=== PATIENT | female | born 1960 | race Two or more races ===

== ENCOUNTER 2017-03-09 20:59 | Emergency (ER) | payer MEDICAID ==
[~2017-03-09] VITALS: Ht 157.5 cm; Wt 54.0 kg
[2017-03-09 21:20] VITALS: BP 131/78
[2017-03-09] MEDS ORDERED: CYCLOBENZAPRINE10 MG ORAL (21:48)
[2017-03-09] MEDS ORDERED: IBUPROFEN400 MG ORAL (21:48)
[2017-03-09 21:54] VITALS: BP 131/78
--- NOTE | 2017-03-10 01:03 | Emergency Room Report ---
History of Present Illness General Chief Complaint: Lower Back Pain or Injury Source: Patient Present Illness HPI 56-year-old female presents ED complaining of back pain x2 days. Denies trauma. States that pain as throbbing, 6/10, nonradiating. Worse with twisting and bending. Denies any dysuria or hematuria. Denies bowel or bladder incontinence. Denies weakness. No aggravating relieving factors. Denies any other associated symptom Allergies: Coded Allergies: No Known Allergies (Unverified , 03/09/17) Patient History Past Medical History: none Past Surgical History: none Pertinent Family History: none Social History: Denies: alcohol use, drug use, smoking Now: No Immunizations: UTD Reviewed Nursing Documentation: PMH: Agreed, PSxH: Agreed Nursing Documentation-PMH Past Medical History: No Stated History Review of Systems All Other Systems: negative except mentioned in HPI Physical Exam Vital Signs Date Time Temp Pulse Resp B/P Pulse Ox O2 Delivery O2 Flow Rate FiO2 03/09/17 21:11 98.8 71 15 131/78 97 Room Air Sp02 EP Interpretation: reviewed, normal General Appearance: no apparent distress, alert, GCS 15, non-toxic Head: normocephalic Eyes: bilateral eye PERRL, bilateral eye normal inspection ENT: normal ENT inspection Neck: normal inspection Respiratory: normal inspection Cardiovascular #1: normal inspection Gastrointestinal: normal inspection Rectal: deferred Genitourinary: no CVA tenderness Musculoskeletal: tender - paraspinal lumbar tenderness Neurologic: alert, oriented x3, responsive, motor strength/tone normal, sensory intact, speech normal Psychiatric: normal inspection Skin: normal inspection Lymphatic: normal inspection Medical Decision Making Diagnostic Impression: Primary Impression: Low back pain Qualified Codes: M54.5 - Low back pain ER Course Hospital Course 56-year-old female presents ED complaining of lower back pain. No evidence of trauma Differential diagnoses include: pyelonephritis, kidney stone, muscle strain, Lspine fracture Clinical course Patient placed on stretcher. After initial history and physical I ordered Motrin for pain. Upon reassessment patient states pain has improved. Upon review of EMR, patient does not have any visits to ED requesting pain medications. Diagnosis - back pain Stable and discharged to home with prescription for Motrin, Flexeril. Followup with PMD. Return to ED if symptoms recur or worsen Last Vital Signs Date Time Temp Pulse Resp B/P Pulse Ox O2 Delivery O2 Flow Rate FiO2 03/09/17 21:54 98.8 77 15 131/78 97 Room Air Status: improved Disposition: HOME, SELF-CARE Condition: Stable Scripts Cyclobenzaprine Hcl* (FLEXERIL*) 10 Mg Tablet 10 MG ORAL TID Y for Muscle Spasm, #20 TAB Prov: FRANK POOL M.D. 03/09/17 Ibuprofen* (MOTRIN*) 400 Mg Tablet 400 MG ORAL Q8H, #30 TAB 0 Refills Prov: FRANK POOL M.D. 03/09/17 Referrals: NOT CHOSEN IPA/,REFERRING (PCP) Patient Instructions: Lumbosacral Strain FRANK POOL M.D. Mar 10, 2017 01:03
== END 2017-03-09 21:54 | disposition home or self-care (01) ==
LOC: EMR 21:27
DX: M54.5 Low back pain (principal)
CPT/HCPCS: 99284

== ENCOUNTER 2017-12-20 13:58 | Emergency (ER) | payer MEDICAID ==
[~2017-12-20] VITALS: Ht 157.5 cm; Wt 59.0 kg
[~2017-12-20 13:58] MED LIST: CYCLOBENZAPRINE10 MG ORAL; IBUPROFEN400 MG ORAL
[2017-12-20 14:06] VITALS: BP 106/69
--- NOTE | 2017-12-20 14:26 | Emergency Room Report ---
History of Present Illness General Chief Complaint: Syncope Source: Patient, Family Member Present Illness HPI 57-year-old female walks in with 5 days of intermittent headache, body aches, subjective fever , not measured at home, an episode of dizziness with almost passing out earlier today, which is why she came in it. No associated chest pain, shortness of breath, abdominal pain, nausea vomiting. Patient just took pain medication prior to arrival, currently asymptomatic. Denies other medical problems including diabetes, hypertension. No sick contacts at home. Allergies: Coded Allergies: No Known Allergies (Unverified , 03/09/17) Patient History Past Medical History: none Past Surgical History: none Pertinent Family History: none Social History: Denies: smoking, alcohol use, drug use Now: No Immunizations: UTD Reviewed Nursing Documentation: PMH: Agreed, PSxH: Agreed Nursing Documentation-PMH Past Medical History: No Stated History Review of Systems All Other Systems: negative except mentioned in HPI Physical Exam Vital Signs Date Time Temp Pulse Resp B/P (MAP) Pulse Ox O2 Delivery O2 Flow Rate FiO2 12/20/17 14:06 98.1 68 20 106/69 100 Room Air Sp02 EP Interpretation: reviewed, normal General Appearance: normal inspection, well appearing, no apparent distress, alert, GCS 15, non-toxic Head: normocephalic, atraumatic Eyes: bilateral eye PERRL, bilateral eye EOMI ENT: normal ENT inspection, hearing grossly normal, normal pharynx, no angioedema, normal voice, TMs + canals normal, uvula midline, moist mucus membranes Neck: normal inspection, full range of motion, supple, thyroid normal, no meningismus, no bony tend Respiratory: normal inspection, lungs clear, normal breath sounds, no rhonchi, no respiratory distress, no retraction, no accessory muscle use, no wheezing, speaking full sentences Cardiovascular #1: regular rate, rhythm, no edema, no JVD, normal capillary refill Gastrointestinal: normal inspection, normal bowel sounds, non tender, soft, no mass, no peritonitis, non-distended, no guarding, no hernia, no pulsatile mass Genitourinary: no CVA tenderness Musculoskeletal: normal inspection, back normal, normal range of motion, no calf tenderness, pelvis stable, Alondra's Sign negative Neurologic: normal inspection, alert, oriented x3, responsive, art educator III-XII nml as tested, motor strength/tone normal, cerebellar normal, normal gait, speech normal Psychiatric: normal inspection, judgement/insight normal, mood/affect normal, no suicidal/homicidal ideation, no delusions Skin: normal inspection, normal color, no rash Lymphatic: normal inspection, no adenopathy Medical Decision Making Diagnostic Impression: Primary Impression: Influenza-like illness ER Course 57-year-old female with symptoms consistent with influenza-like illness. ECG done because of almost syncope: No ischemia, or arrhythmia. No WPW. No prolonged QTC. UA: 1+ leukocyte Esterase. No WBCs or sign of infection. Chest x-ray:negative for pneumonia No other signs of bacterial infection on exam Low suspicion for a meningitis, SAH, given well appearance, no focal neurological deficits, and normal serial vital signs. likely viral or flulike illness Out of window for Tamiflu Advised ibuprofen, Robaxin when necessary headache body aches Close followup ER course: Patient has remained stable during ED stay. Disposition: Patient is to be discharged to home. Prescriptions given are robaxin, motrin Patient is instructed to follow up with their primary care doctor within 5 days. Strict return precautions discussed with patient such as fever, chills, worsening/severe pain, nausea, vomiting, which may indicate severe illness. Patient verbalizes understanding and agrees with plan. Please note that this Emergency Department Report was dictated using [employer] l[employer] technology software, occasionally this can lead to erroneous entry secondary to interpretation by the dictation equipment EKG Diagnostic Results Rate: normal Rhythm: NSR ST Segments: no acute changes ASA given to the pt in ED: No Last Vital Signs Date Time Temp Pulse Resp B/P (MAP) Pulse Ox O2 Delivery O2 Flow Rate FiO2 12/20/17 14:06 98.1 68 20 106/69 100 Room Air Status: improved Disposition: HOME, SELF-CARE Scripts Methocarbamol* (ROBAXIN*) 500 Mg Tablet 500 MG PO TID for back pain for 7 Days, #30 TAB 0 Refills Prov: BORIS COREY M.D. 12/20/17 Ibuprofen* (MOTRIN*) 600 Mg Tablet 600 MG ORAL THREE TIMES A DAY for 7 Days, #30 TAB 0 Refills Prov: BORIS COREY M.D. 12/20/17 BORIS COREY M.D. Dec 20, 2017 14:25
[2017-12-20 14:28] LABS: APPEARANCE,URINE CLEAR; BILIRUBIN, URINE NEGATIVE (NEGATIVE); GLUCOSE, URINE (UA) NEGATIVE (NEGATIVE); KETONES,URINE NEGATIVE (NEGATIVE); LEUKOCYTE ESTERASE ,URINE 1+ (NEGATIVE); NITRITE,URINE NEGATIVE (NEGATIVE); PH,URINE 6 (4.5-8.0); PROTEIN,URINE 2+ (NEGATIVE); UROBILINOGEN,URINE 1 MG/DL (0.0-1.0)
[2017-12-20 14:29] LABS: COLOR,URINE YELLOW
[2017-12-20] MEDS ORDERED: IBUPROFEN600 MG ORAL (15:00)
[2017-12-20] MEDS ORDERED: ROBAXIN500 MG PO (15:00)
[2017-12-20 15:08] VITALS: BP 111/66
[2017-12-20 15:10] VITALS: BP 111/66
--- NOTE | 2017-12-20 15:24 | Diagnostic Imaging Report ---
Indication: Reason For Exam: COUGH Technique: One view of the chest Comparison: none Findings: Lungs and pleural spaces are clear. Heart size is normal Impression: No acute process
--- NOTE | 2017-12-31 16:59 | Cardiology Report ---
APPROVED REPORT EKG Measurement Heart [id number] OR [id number] Normal sinus rhythm Normal ECG
== END 2017-12-20 15:10 | disposition home or self-care (01) ==
LOC: EMR 14:33
DX: J11.1 Influenza due to unidentified influenza virus with other respiratory manifestations (principal)
CPT/HCPCS: 71045; 81003; 93005; 99283

== ENCOUNTER 2018-06-05 23:35 | Emergency (ER) | payer MEDICAID ==
[~2018-06-05] VITALS: Ht 157.5 cm; Wt 53.1 kg
[~2018-06-05 23:35] MED LIST changes: +IBUPROFEN600 MG ORAL; +ROBAXIN500 MG PO
[2018-06-06 00:21] LABS: BILIRUBIN, URINE NEGATIVE (NEGATIVE); COLOR,URINE PALE YELLOW; GLUCOSE, URINE (UA) NEGATIVE (NEGATIVE); KETONES,URINE NEGATIVE (NEGATIVE); LEUKOCYTE ESTERASE ,URINE 3+ (NEGATIVE); NITRITE,URINE NEGATIVE (NEGATIVE); PH,URINE 7 (4.5-8.0); PROTEIN,URINE NEGATIVE (NEGATIVE); UROBILINOGEN,URINE NORMAL MG/DL (0.0-1.0)
--- NOTE | 2018-06-06 00:21 | Emergency Room Report ---
History of Present Illness General Chief Complaint: Female Urogenital Problems Source: Patient Present Illness HPI Patient presents with complaints of dysuria and burning for the last 3 days And now more recently over the past one day started having left flank pain Denies any chest pain or shortness of breath Denies any vomiting or diarrhea Denies any fevers or chills Dysuria is burning with 4 out of 10 pain Allergies: Coded Allergies: No Known Allergies (Unverified , 03/09/17) Patient History Past Medical History: see triage record Pertinent Family History: none Reviewed Nursing Documentation: PMH: Agreed; PSxH: Agreed Nursing Documentation-PMH Past Medical History: No Stated History Review of Systems All Other Systems: negative except mentioned in HPI Physical Exam Vital Signs Date Time Temp Pulse Resp B/P (MAP) Pulse Ox O2 Delivery O2 Flow Rate FiO2 06/05/18 23:54 98.1 77 16 122/76 95 Room Air 98.1 Sp02 EP Interpretation: reviewed, normal General Appearance: well appearing, no apparent distress Head: normocephalic, atraumatic Eyes: bilateral eye PERRL, bilateral eye EOMI ENT: hearing grossly normal, normal pharynx, TMs + canals normal, uvula midline Neck: full range of motion, supple, no meningismus, no bony tend Respiratory: lungs clear, normal breath sounds, no rhonchi, no respiratory distress, no retraction, no accessory muscle use Cardiovascular #1: normal peripheral pulses, regular rate, rhythm, no edema, no gallop, no JVD, no murmur Gastrointestinal: normal bowel sounds, non tender, soft, no mass, no organomegaly, non-distended, no guarding, no hernia, no pulsatile mass, no rebound Genitourinary: no CVA tenderness Musculoskeletal: normal inspection Neurologic: oriented x3, responsive, clean rice broker III-XII nml as tested, motor strength/ tone normal, sensory intact Psychiatric: mood/affect normal Skin: normal color, no rash, warm/dry, palpation normal Lymphatic: normal inspection, no adenopathy Medical Decision Making Diagnostic Impression: Primary Impression: UTI (urinary tract infection) Additional Impression: Pyelonephritis ER Course With the patient's history and examination, multiple differentials considered, including but not limited to , ectopic , ovarian torsion, gastritis, cholecystitis, pancreatitis, appendicitis Patient's urine sample does show significant infection Given the clinical history there is some concern for early pyelonephritis Patient otherwise tolerating oral intake well And will have initial conservative outpatient trial Labs Test 06/06/18 00:10 06/06/18 00:30 Urine Color Pale yellow Urine Appearance Slightly cloudy Urine pH 7 (4.5-8.0) Urine Specific [place] 1.005 (1.005-1.035) Urine Protein Negative (NEGATIVE) Urine Glucose (UA) Negative (NEGATIVE) Urine Ketones Negative (NEGATIVE) Urine Occult Blood 2+ (NEGATIVE) Urine Nitrite Negative (NEGATIVE) Urine Bilirubin Negative (NEGATIVE) Urine Urobilinogen Normal MG/DL (0.0-1.0) Urine Leukocyte Esterase 3+ (NEGATIVE) Urine RBC 2-4 /HPF (0 - 2) Urine WBC Tntc /HPF (0 - 2) Urine Squamous Epithelial Cells Few /LPF (NONE/OCC) Urine Bacteria Few /HPF (NONE) White Blood Count 13.0 K/UL (4.8-10.8) Red Blood Count 4.33 M/UL (4.20-5.40) Hemoglobin 12.6 G/DL (12.0-16.0) Hematocrit 38.5 % (37.0-47.0) Mean Corpuscular Volume 89 FL (80-99) Mean Corpuscular Hemoglobin 29.1 PG (27.0-31.0) Mean Corpuscular Hemoglobin Concent 32.7 G/DL (32.0-36.0) Red Cell Distribution Width 11.4 % (11.6-14.8) Platelet Count 201 K/UL (150-450) Mean Platelet Volume 10.4 FL (6.5-10.1) Neutrophils (%) (Auto) 78.9 % (45.0-75.0) Lymphocytes (%) (Auto) 12.3 % (20.0-45.0) Monocytes (%) (Auto) 7.6 % (1.0-10.0) Eosinophils (%) (Auto) 0.7 % (0.0-3.0) Basophils (%) (Auto) 0.6 % (0.0-2.0) Sodium Level 141 MMOL/L (136-145) Potassium Level 3.6 MMOL/L (3.5-5.1) Chloride Level 107 MMOL/L (98-107) Carbon Dioxide Level 27 MMOL/L (21-32) Anion Gap 7 mmol/L (5-15) Blood Urea Nitrogen 13 mg/dL (7-18) Creatinine 0.8 MG/DL (0.55-1.30) Estimat Glomerular Filtration Rate > 60 mL/min (>60) Glucose Level 153 MG/DL (74-106) Calcium Level 8.4 MG/DL (8.5-10.1) Total Bilirubin 0.5 MG/DL (0.2-1.0) Aspartate Amino Transf (AST/SGOT) 15 U/L (15-37) Alanine Aminotransferase (ALT/SGPT) 20 U/L (12-78) Alkaline Phosphatase 91 U/L (46-116) Total Protein 6.9 G/DL (6.4-8.2) Albumin 3.6 G/DL (3.4-5.0) Globulin 3.3 g/dL Albumin/Globulin Ratio 1.1 (1.0-2.7) Last Vital Signs Date Time Temp Pulse Resp B/P (MAP) Pulse Ox O2 Delivery O2 Flow Rate FiO2 06/05/18 23:54 98.1 77 16 122/76 95 Room Air 98.1 Status: improved Disposition: HOME, SELF-CARE Condition: Improved Scripts Phenazopyridine Hcl* (PYRIDIUM*) 100 Mg Tablet 100 MG ORAL THREE TIMES A DAY, #9 TAB Prov: Jacob Low DO 06/06/18 Cephalexin* (KEFLEX*) 500 Mg Capsule 500 MG ORAL EVERY 6 HOURS for 7 Days, CAP Prov: Jacob Low DO 06/06/18 Additional Instructions: Patient is provided with the discharge instructions notified to follow up with primary doctor in the next 2-3 days otherwise return to the er with any worsening symptoms. Please note that this report is being documented using [employer] technology. This can lead to erroneous entry secondary to incorrect interpretation by the dictating instrument. Jacob Low DO Jun 06, 2018 00:21
[2018-06-06 00:30] VITALS: BP 118/75
[2018-06-06 00:36] LABS: APPEARANCE,URINE SLIGHTLY CLOUDY
[2018-06-06 00:44] LABS: BASOPHILS % (AUTO) 0.6 % (0.0-2.0); EOSINOPHILS % (AUTO) 0.7 % (0.0-3.0); HEMATOCRIT 38.5 % (37.0-47.0); HEMOGLOBIN 12.6 G/DL (12.0-16.0); LYMPHOCYTES % (AUTO) 12.3 % (20.0-45.0); MEAN CORPUSCULAR VOLUME 89 FL (80-99); MONOCYTES % (AUTO) 7.6 % (1.0-10.0); NEUTROPHILS % (AUTO) 78.9 % (45.0-75.0); PLATELET COUNT 201 K/UL (150-450); RED BLOOD COUNT 4.33 M/UL (4.20-5.40); RED CELL DISTRIBUTION WIDTH 11.4 % (11.6-14.8)
[2018-06-06 00:57] LABS: ANION GAP 7 mmol/L (5-15); BLOOD UREA NITROGEN 13 mg/dL (7-18); CALCIUM 8.4 MG/DL (8.5-10.1); CARBON DIOXIDE 27 MMOL/L (21-32); CHLORIDE 107 MMOL/L (98-107); CREATININE 0.8 MG/DL (0.55-1.30); POTASSIUM 3.6 MMOL/L (3.5-5.1); SODIUM 141 MMOL/L (136-145)
[2018-06-06 01:02] LABS: ALANINE AMINOTRANSFERASE 20 U/L (12-78); ALBUMIN 3.6 G/DL (3.4-5.0); ALBUMIN/GLOBULIN RATIO 1.1 (1.0-2.7); ALKALINE PHOSPHATASE 91 U/L (46-116); ASPARTATE AMINO TRANSFERASE 15 U/L (15-37); BILIRUBIN,TOTAL 0.5 MG/DL (0.2-1.0)
[2018-06-06 01:30] VITALS: BP 118/71
[2018-06-06] MEDS ORDERED: Cephalexin 500mg cap ORAL ONE (01:30)
[2018-06-06] MEDS ORDERED: PHENAZOPYRIDIN100 MG ORAL (01:31)
[2018-06-06] MEDS ORDERED: CEPHALEXIN500 MG ORAL (01:31)
[2018-06-06 01:40] VITALS: BP 118/71
== END 2018-06-06 01:40 | disposition home or self-care (01) ==
LOC: EMR 23:59
DX: N39.0 Urinary tract infection, site not specified (principal); N12 Tubulo-interstitial nephritis, not specified as acute or chronic
CPT/HCPCS: 36415; 80053; 81003; 85025; 87086; 87181; 99284